=== PATIENT | male | born 1995 | race American Indian/Alaskan Native ===

== ENCOUNTER 2018-02-23 19:15 | Emergency (ER) | payer SELFPAY ==
[2018-02-23 19:25] VITALS: BP 149/79
[2018-02-23] MEDS ORDERED: TYLENOL ONE (19:42)
[2018-02-23] MEDS ORDERED: TYLENOL PO ONE (19:47)
[2018-02-23] MEDS ORDERED: ULTRAM PO ONE (20:54)
[2018-02-23] MEDS ORDERED: ULTRAM ONE (20:57)
[2018-02-23] MEDS ORDERED: TRIMOX PO ONE (21:30)
--- NOTE | 2018-02-23 21:34 | Emergency Department Report ---
ED ENT HPI - General Chief complaint: Dental/Oral Stated complaint: TOOTHACHE Time Seen by Provider: 02/23/18 21:30 Source: patient Mode of arrival: Ambulatory Limitations: No Limitations - History of Present Illness Initial comments: There is a 23-year-old Afro-Algerian male who presents with open 6/10 right upper history of same the last 6 months intermittently states pain worse over the last week as exacerbated by hot. Stimulation blood sugars pains relieved by nothing. Patient states and unable to see dentist due to financial questionable referral to dentist patient refuses to discuss I&D patient is tolerating by mouth intake. MD complaint: tooth pain Onset/Timin -: month(s) Location: tooth # (3) Severity: moderate Severity scale (0 -10): 6 Quality: aching, sharp Consistency: intermittent Improves with: none Worsens with: other (hot cold stimuli sugary foods) Associated Symptoms: toothache - Related Data Previous Rx's Medication Instructions Recorded Last Taken Type Amoxicillin 500 mg PO TID #30 capsule 02/23/18 Unknown Rx Chlorhexidine Mouthwash [Peridex] 15 ml MM BID #1 bottle 02/23/18 Unknown Rx traMADol [Ultram] 50 mg PO Q6HR PRN #15 tablet 02/23/18 Unknown Rx Allergies Allergy/AdvReac Type Severity Reaction Status Date / Time No Known Allergies Allergy Verified 02/23/18 19:45 ED Dental HPI - General Chief complaint: Dental/Oral Stated complaint: TOOTHACHE Time Seen by Provider: 02/23/18 21:30 Source: patient Mode of arrival: Ambulatory Limitations: No Limitations - Related Data Previous Rx's Medication Instructions Recorded Last Taken Type Amoxicillin 500 mg PO TID #30 capsule 02/23/18 Unknown Rx Chlorhexidine Mouthwash [Peridex] 15 ml MM BID #1 bottle 02/23/18 Unknown Rx traMADol [Ultram] 50 mg PO Q6HR PRN #15 tablet 02/23/18 Unknown Rx Allergies Allergy/AdvReac Type Severity Reaction Status Date / Time No Known Allergies Allergy Verified 02/23/18 19:45 ED Review of Systems ROS: Stated complaint: TOOTHACHE Other details as noted in HPI Constitutional: denies: chills, fever Eyes: denies: eye pain, eye discharge, vision change ENT: dental pain Respiratory: denies: cough, shortness of breath, wheezing Cardiovascular: denies: chest pain, palpitations Endocrine: no symptoms reported Gastrointestinal: denies: abdominal pain, nausea, diarrhea Genitourinary: denies: urgency, dysuria Musculoskeletal: denies: back pain, joint swelling, arthralgia Skin: denies: rash, lesions Neurological: denies: headache, weakness, paresthesias Psychiatric: denies: anxiety, depression Hematological/Lymphatic: denies: easy bleeding, easy bruising ED Past Medical Hx - Past Medical History Previous Medical History?: No - Surgical History Past Surgical History?: No - Social History Smoking Status: Current Every Day Smoker Substance Use Type: None - Medications Home Medications: Home Medications Medication Instructions Recorded Confirmed Last Taken Type Amoxicillin 500 mg PO TID #30 capsule 02/23/18 Unknown Rx Chlorhexidine Mouthwash [Peridex] 15 ml MM BID #1 bottle 02/23/18 Unknown Rx traMADol [Ultram] 50 mg PO Q6HR PRN #15 tablet 02/23/18 Unknown Rx ED Physical Exam - General Limitations: No Limitations General appearance: alert, in no apparent distress - Head Head exam: Present: atraumatic, normocephalic - Eye Eye exam: Present: normal appearance - Expanded ENT Exam Expanded Ear exam: Present: normal external inspection Mouth exam: Absent: trismus Teeth exam: Present: dental caries (mild gum erythema no focal abscess no facial or gum swelling), dental tenderness # (4) Throat exam: Positive: normal inspection. Negative: tonsillar erythema, tonsillomegaly, tonsillar exudate, R peritonsillar mass, L peritonsillar mass - Neck Neck exam: Present: normal inspection, full ROM. Absent: tenderness, lymphadenopathy, thyromegaly - Respiratory Respiratory exam: Present: normal lung sounds bilaterally, chest wall tenderness. Absent: respiratory distress, wheezes, stridor - Cardiovascular Cardiovascular Exam: Present: regular rate, normal rhythm. Absent: systolic murmur, diastolic murmur, rubs, gallop - GI/Abdominal GI/Abdominal exam: Present: soft, normal bowel sounds - Rectal Rectal exam: Present: deferred - Extremities Exam Extremities exam: Present: normal inspection - Back Exam Back exam: Present: normal inspection - Neurological Exam Neurological exam: Present: alert, oriented X3 - Psychiatric Psychiatric exam: Present: normal affect, normal mood - Skin Skin exam: Present: warm, dry, intact, normal color. Absent: rash ED Course Vital Signs 02/23/18 19:23 Temperature 98.8 F Pulse Rate 74 Respiratory 18 Rate Blood Pressure 149/79 O2 Sat by Pulse 99 Oximetry ED Medical Decision Making - Medical Decision Making Is infected dental caries #3 plan amoxicillin Ultram Peridex patient will follow once outside medical clinic dental also given referral to [facility] which may have sooner access appointment patient will follow up in a.m. with each patient verbalizes understanding and agreement with same will be DC'd home in stable condition at this time Critical care attestation.: If time is entered above; I have spent that time in minutes in the direct care of this critically ill patient, excluding procedure time. ED Disposition Clinical Impression: Infected dental caries Disposition: DC- TO HOME OR SELFCARE Is pt being admited?: No Does the pt Need Aspirin: No Condition: Good Instructions: Dental Caries (ED) Additional Instructions: [facility] [address] [facility] [id number]: Prescriptions: Amoxicillin 500 mg PO TID #30 capsule Chlorhexidine Mouthwash [Peridex] 15 ml MM BID #1 bottle traMADol [Ultram] 50 mg PO Q6HR PRN #15 tablet PRN Reason: Pain Referrals: [facility] [Outside] - 3-5 Days Forms: Work/School Release Form(ED) Time of Disposition: 21:41
== END 2018-02-23 21:45 | disposition home or self-care (01) ==
LOC: ED 19:15
DX: K02.9 Dental caries, unspecified (principal); F17.200 Nicotine dependence, unspecified, uncomplicated
CPT/HCPCS: 99282

== ENCOUNTER 2018-08-14 09:51 | Emergency (ER) | payer SELFPAY ==
[2018-08-14 10:00] VITALS: BP 124/76
--- NOTE | 2018-08-14 11:34 | Emergency Department Report ---
Eye Injury/Foreign Body - HPI Duration: 2 Days Eye Location: Left Severity: Moderate Tetanus Status: Unknown Eye Symptoms: Eye Pain: Yes, Blurred Vision: Yes, Eye Redness: Yes, Grinding/Hammering Metal: No, Used Eye Protection: No, Contact Lens Use: No, Recalls Injury: No, Photophobia: Yes Other History: This is a 23-year-old -A[place]ijani female presents with left arm pain for 2 days. 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 He cleaned both eyes with OTC eye cleaning drops and patched left eye. Patient states the vision is the same. He reports discomfort to left eye but no pain, increased tearing and redness. He denies photophobia or swelling. ED Review of Systems ROS: Stated complaint: SOMETHING IN EYE Other details as noted in HPI Constitutional: denies: chills, fever Eyes: eye pain (left eye discomfort), eye discharge (left), vision change (left) ENT: denies: ear pain, throat pain Respiratory: denies: cough, shortness of breath, wheezing Cardiovascular: denies: chest pain, palpitations Skin: denies: rash, lesions Neurological: denies: headache, weakness, paresthesias Psychiatric: denies: anxiety, depression ED Past Medical Hx - Social History Smoking Status: Current Every Day Smoker Substance Use Type: None - Medications Home Medications: Home Medications Medication Instructions Recorded Confirmed Last Taken Type Amoxicillin 500 mg PO TID #30 capsule 02/23/18 Unknown Rx Chlorhexidine Mouthwash [Peridex] 15 ml MM BID #1 bottle 02/23/18 Unknown Rx traMADol [Ultram] 50 mg PO Q6HR PRN #15 tablet 02/23/18 Unknown Rx Polymyxin B Sulf/Trimethoprim 10 ml OP QID 7 Days #1 bottle 08/14/18 Unknown Rx [Polytrim Eye Drops] Eye Injury Exam - Exam General: Vital signs noted. No distress. Alert and acting appropriately. - Visual Acuity Right Vision Acuity Degree: 20/20 Left Vision Acuity Degree: 20/25 Bilateral Vision Acuity Degree: 20/20 Eye Exam: Left Mucous Discharge, Both Injection, Neither Chemosis, Neither Abnormal Pupil, Neither EOMI, Neither Eye Foreign Body, Neither Lid Foreign Body, Neither Purulent Discharge, Neither Fluorescein Uptake, Neither Fluorescein Uptake (slit lamp), Neither Cell/Flare (slit lamp), Neither Corneal Edema, Neither Photophobia ED Course Vital Signs 08/14/18 09:55 Temperature 98.1 F Pulse Rate 61 Respiratory 18 Rate Blood Pressure 124/76 O2 Sat by Pulse 100 Oximetry ED Medical Decision Making - Medical Decision Making This is a 23-year-old male presents to the emergency room with left eye discomfort and redness for 2 days. Patient is stable and was examined by me. Vitals normal. Acuity eye exam left 20/25, right 20/20, and bilateral 20/20. Patient refused or unable to tolerate slit lamp exam. Physical assessment susceptible of conjunctivitis bilateral. Start polytrim gtts. Referral to [facility] orientator in 24 hours. Instructed to f/u with quartz orientator directly after discharge. Discussed plan with patient who agreed with plan. Discharged home in stable condition. Critical care attestation.: If time is entered above; I have spent that time in minutes in the direct care of this critically ill patient, excluding procedure time. ED Disposition Clinical Impression: Conjunctivitis Qualifiers: Conjunctivitis type: acute Acute conjunctivitis type: bacterial Laterality: left Qualified Code(s): H10.32 - Unspecified acute conjunctivitis, left eye Disposition: - TO HOME OR SELFCARE Is pt being admited?: No Does the pt Need Aspirin: No Condition: Stable Instructions: Conjunctivitis (ED) Additional Instructions: Don't share any towels or bedding to prevent spread of infection. Follow up with [facility] orientator in 24 hours. Use cool compress to each eye to decrease swelling. Avoid rubbing or touching eyes, because rubbing eyes can cause worsening symptoms. Take medication as prescribed. Return to ER if swelling don't improve, irritation or pain increase. Prescriptions: Polymyxin B Sulf/Trimethoprim [Polytrim Eye Drops] 10 ml OP QID 7 Days #1 bottle Referrals: [facility] [Outside] - 3-5 Days BOYD SINGH MD [Staff Physician] - 3-5 Days [facility] [Provider Group] - 3-5 Days [facility] [place] [Provider Group] - 3-5 Days [facility] [Outside] - 3-5 Days Forms: Work/School Release Form(ED) Time of Disposition: 13:10
[2018-08-14] MEDS ORDERED: FUL-GLO OP ONE (12:03)
[2018-08-14] MEDS ORDERED: TETRACAINE 0.5% OU ONE (12:04)
== END 2018-08-14 13:20 | disposition home or self-care (01) ==
LOC: ED 09:51
DX: H10.32 Unspecified acute conjunctivitis, left eye (principal); F17.200 Nicotine dependence, unspecified, uncomplicated
CPT/HCPCS: 99282

== ENCOUNTER 2021-03-20 02:15 | Emergency (ER) | payer SELFPAY ==
[2021-03-20 02:37] VITALS: BP 167/79
[2021-03-20] MEDS ORDERED: IBUPROFEN 600 MG TAB PO ONE (02:48)
[2021-03-20] MEDS ORDERED: LIDOCAINE VISCOUS 2% 15 ML ORAL LIQD PO ONE (02:48)
--- NOTE | 2021-03-20 02:50 | Emergency Department Report ---
ED ENT HPI - General Chief complaint: Dental/Oral Stated complaint: TOOTH ABCESS Time Seen by Provider: 03/20/21 02:36 Source: patient Mode of arrival: Ambulatory Limitations: No Limitations - History of Present Illness Initial comments: 26-year-old male presents to the ER today with complaints of dental pain. Patient states that his symptoms started 4 days ago. He reports pain to one of the tooth in his most posterior tooth in his left lower jaw with associated swelling. Patient states that he has been taking Tylenol, as well as warm salt water rinses without much relief. He denies any injury to the tooth. He states that he does have a dentist whom he saw about 1 year ago who removed one of his wisdom tooth. He has not called to make an appointment with the dentist since he started having pain. He reports no difficulty swallowing, difficulty breathing, facial redness, difficulty opening his mouth, or drooling fever or chills. MD complaint: tooth pain -: Gradual, days(s) (4) - Related Data Previous Rx's Medication Instructions Recorded Last Taken Type Chlorhexidine Mouthwash [Peridex] 15 ml MM BID #1 bottle 02/23/18 Unknown Rx Polymyxin B Sulf/Trimethoprim 10 ml OP QID 7 Days #1 bottle 08/14/18 Unknown Rx [Polytrim Eye Drops] Amoxicillin [Trimox CAP] 500 mg PO Q8H #30 capsule 03/20/21 Unknown Rx Ibuprofen [Motrin] 600 mg PO Q8H PRN #30 tablet 03/20/21 Unknown Rx traMADoL [Ultram 50 MG tab] 50 mg PO Q6HR PRN #15 tablet 03/20/21 Unknown Rx Allergies Allergy/AdvReac Type Severity Reaction Status Date / Time No Known Allergies Allergy Verified 02/23/18 19:45 ED Dental HPI - General Chief complaint: Dental/Oral Stated complaint: TOOTH ABCESS Time Seen by Provider: 03/20/21 02:36 Source: patient Mode of arrival: Ambulatory Limitations: No Limitations - Related Data Previous Rx's Medication Instructions Recorded Last Taken Type Chlorhexidine Mouthwash [Peridex] 15 ml MM BID #1 bottle 02/23/18 Unknown Rx Polymyxin B Sulf/Trimethoprim 10 ml OP QID 7 Days #1 bottle 08/14/18 Unknown Rx [Polytrim Eye Drops] Amoxicillin [Trimox CAP] 500 mg PO Q8H #30 capsule 03/20/21 Unknown Rx Ibuprofen [Motrin] 600 mg PO Q8H PRN #30 tablet 03/20/21 Unknown Rx traMADoL [Ultram 50 MG tab] 50 mg PO Q6HR PRN #15 tablet 03/20/21 Unknown Rx Allergies Allergy/AdvReac Type Severity Reaction Status Date / Time No Known Allergies Allergy Verified 02/23/18 19:45 ED Review of Systems ROS: Stated complaint: TOOTH ABCESS Other details as noted in HPI Comment: All other systems reviewed and negative Constitutional: denies: chills, fever Eyes: denies: eye pain, eye discharge, vision change ENT: dental pain Respiratory: denies: cough, orthopnea, shortness of breath, SOB with exertion, SOB at rest, wheezing Cardiovascular: denies: chest pain, palpitations, dyspnea on exertion, edema, syncope, paroxysmal nocturnal dyspnea Gastrointestinal: denies: abdominal pain, nausea, diarrhea Genitourinary: denies: urgency, dysuria, frequency, hematuria, discharge, test icular pain, testicular mass Skin: denies: rash, lesions, change in color, change in hair/nails, pruritus Neurological: denies: headache, weakness, numbness, paresthesias, confusion, abnormal gait, vertigo Psychiatric: denies: anxiety, depression, auditory hallucinations, visual hallucinations, homicidal thoughts, suicidal thoughts Hematological/Lymphatic: denies: easy bleeding, easy bruising, swollen glands ED Past Medical Hx - Past Medical History Previous Medical History?: No - Surgical History Past Surgical History?: No - Social History Smoking Status: Current Every Day Smoker Substance Use Type: None - Medications Home Medications: Home Medications Medication Instructions Recorded Confirmed Last Taken Type Chlorhexidine Mouthwash [Peridex] 15 ml MM BID #1 bottle 02/23/18 Unknown Rx Polymyxin B Sulf/Trimethoprim 10 ml OP QID 7 Days #1 bottle 08/14/18 Unknown Rx [Polytrim Eye Drops] Amoxicillin [Trimox CAP] 500 mg PO Q8H #30 capsule 03/20/21 Unknown Rx Ibuprofen [Motrin] 600 mg PO Q8H PRN #30 tablet 03/20/21 Unknown Rx traMADoL [Ultram 50 MG tab] 50 mg PO Q6HR PRN #15 tablet 03/20/21 Unknown Rx ED Physical Exam - General Limitations: No Limitations General appearance: alert, in no apparent distress - Head Head exam: Present: atraumatic, normocephalic, normal inspection - Eye Eye exam: Present: normal appearance, PERRL, EOMI Pupils: Present: normal accommodation - ENT ENT exam: Present: mucous membranes moist - Expanded ENT Exam Expanded Mouth exam: Present: normal external inspection 1 - Dental Tenderness (Severe dental tenderness with dental impaction noted), Other (Moderate gingival swelling noted behind the tooth with severe tenderness to palpation) Throat exam: Positive: normal inspection - Neck Neck exam: Present: normal inspection, full ROM, lymphadenopathy (Left anterior cervical) - Respiratory Respiratory exam: Absent: respiratory distress - Cardiovascular Cardiovascular Exam: Present: regular rate - Neurological Exam Neurological exam: Present: alert, oriented X3, CN II-XII intact, normal gait - Psychiatric Psychiatric exam: Present: normal affect, normal mood ED Course Vital Signs 03/20/21 02:34 Temperature 98.0 F Pulse Rate 70 Respiratory 18 Rate Blood Pressure 167/79 O2 Sat by Pulse 100 Oximetry Critical care attestation.: If time is entered above; I have spent that time in minutes in the direct care of this critically ill patient, excluding procedure time. ED Disposition Clinical Impression: Dental impaction, Dental abscess Disposition: 01 HOME / SELF CARE / HOMELESS Is pt being admited?: No Does the pt Need Aspirin: No Condition: Stable Instructions: Dental Abscess, [id number], Impacted Molar Additional Instructions: Take the motrin, the ultram and the amoxicillin as prescribed. I recommend that you follow up with the dentist you saw about 1 yr ago or follow up with one of the dentist listed on list given to you. Return to ED if symptoms worsens or changes. Prescriptions: Ibuprofen [Motrin] 600 mg PO Q8H PRN #30 tablet PRN Reason: Pain Amoxicillin [Trimox CAP] 500 mg PO Q8H #30 capsule traMADoL [Ultram 50 MG tab] 50 mg PO Q6HR PRN #15 tablet PRN Reason: Pain Referrals: PRIMARY CARE, [Referring] - 3-5 Days Time of Disposition: 02:48
== END 2021-03-20 04:00 | disposition home or self-care (01) ==
LOC: ED 02:15
DX: K04.7 Periapical abscess without sinus (principal); K01.1 Impacted teeth; F17.200 Nicotine dependence, unspecified, uncomplicated; Z79.899 Other long term (current) drug therapy
CPT/HCPCS: 99282